=== PATIENT | male | born 1945 | race Caucasian/White ===

== ENCOUNTER 2018-05-15 11:40 | Emergency (ER) | payer MEDICARE ==
--- OUTSIDE RECORDS SUMMARY | 2018-05-15 12:02 | XMS REPORT | Continuity of Care Document ---
:1945 External Reference #:[id number] Author Name Tushar Dawkins M.D. Address [address] [place] [address] Care Team Providers Name Role Phone Sha Brice M.D. Primary Care Physician Unavailable Payers Type Date Identification Numbers Payment Provider Subscriber Policy Number: [id number] Medicare - [facility] Naun Saez PayID: [id number] [address] [place], [place] [id number] Advance Directives Description No Information Available Problems Date Description Provider Status Onset: Essential hypertension Active Onset: 05/14/2018 Presbyopia Tushar Dawkins M.D. Active Onset: 05/14/2018 Myopia Tushar Dawkins M.D. 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 Family History Date Family Member(s) Problem(s) Comments Father No Current Problems Mother No Current Problems Social History Type Date Description Comments Sex Unknown Marital Status Single Occupation Clergyman Work Status Full-Time Employment ETOH Use Occasionally consumes alcohol Tobacco Use Start: Unknown Patient has never smoked Smoking Status Reviewed: 05/14/18 Patient has never smoked Allergies, Adverse Reactions, Alerts Description No Known Drug Allergies Medications Medication Date Status Form Strength Qnty SIG Indications Ordering Provider Hydrochlorothiazide Active Tablets 12.5mg Abdoul Brice M.D. Multi Vitamin Daily 00/0 Active Tablets Unknown 000 Vitamin D 0 Active Tablets 1000Unit 4 every Unknown 000 day Immunizations Description No Information Available Vital Signs Description No Information Available Results Description No Information Available Procedures Date Code Description Status 09/30/2011 45689 New Patient Comprehensive Exam Completed Encounters Description No Information Available Plan of Treatment 05/14/2018 - Tushar Dawkins M.D.H25.813 Combined forms of age-related cataract, bilateralComments:Smoking can increase the risk of developing or worsening any eye related disease, as well as affect your overall health. If you are a smoker, we strongly recommend that you quit.If you are not a smoker, we strongly recommend that you do not start. You have been diagnosed with cataracts. If you are happy with your vision as it is now, then we will see you at your next scheduled appointment. If you feel like your vision is getting worse before your scheduled appointment, please call [facility] at [phone].Follow up:6 Month Follow Up DFE You can expect to have your eyes dilated at your next visit. If Dr. Dawkins orders any additional testing, it may require extra time. We recommend that you bring sunglasses, as dilation drops often make you light sensitive until they wear off. We always recommend you bring someone to drive you home if you are uncomfortable driving with your eyes dilated. If you have any questions before your next visit, feel free to call our office at .H40.053 Ocular hypertension, bilateralComments :You have Ocular Hypertension in both eyes. This means that your eye pressure is higher than average, but you have not been diagnosed with Glaucoma.H52.13 Myopia, bilateralComments:You have Myopia, or near sightedness. I have given you a prescription for glasses.H52.4 PresbyopiaComments:You have presbyopia. This is when the lens in your eye loses the ability to change focus, and happens as we age. A pair of reading glasses will help you see up close.
--- NOTE | 2018-05-15 12:06 | UC ---
Throat Pain/Nasal Bakari HPI - HPI Summary HPI Summary: 72 yo male presents with sore throat and dry cough for the last 2-3 days. He has felt warm at times, but has not taken his temperature to see if he has a fever. 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 He has not taken anything OTC for his symptoms. Denies sinus symptoms, SOB, chest pain, n/v. Does not smoke. - History of Current Complaint Stated Complaint: SORE THROAT Time Seen by Provider: 05/15/18 12:05 Hx Obtained From: Patient Onset/Duration: Gradual Onset Severity: Mild Pain Intensity: 2 Pain Scale Used: 0-10 Numeric Cough: Nonproductive - Allergies/Home Medications Allergies/Adverse Reactions: Allergies Allergy/AdvReac Type Severity Reaction Status Date / Time No Known Allergies Allergy Verified 05/15/18 12:03 Home Medications: Home Medications Hydrochlorothiazide TAB* [Hydrodiuril TAB*] 12.5 mg PO DAILY 05/15/18 [History Confirmed 05/15/18] Multivitamin [Multivitamins] 1 cap PO DAILY 05/15/18 [History Confirmed 05/15/18 ] PMH/Surg Hx/FS Hx/Imm Hx Cardiovascular History: Hypertension - Surgical History Surgical History: Yes Surgery Procedure, Year, and Place: Prostatectomy 2002. Hernia repair x 2 - Family History Known Family History: Positive: None - Social History Occupation: Employed Part-time Lives: With Family Alcohol Use: Weekly Substance Use Type: None Smoking Status (MU): Never Smoked Tobacco Review of Systems All Other Systems Reviewed And Are Negative: Yes Constitutional: Positive: Negative Skin: Positive: Negative Eyes: Positive: Negative ENT: Positive: Sore Throat Respiratory: Positive: Cough Cardiovascular: Positive: Negative Neurovascular: Positive: Negative Neurological: Positive: Negative Psychological: Positive: Negative Physical Exam - Summary Physical Exam Summary: GENERAL: NAD. WDWN. No pain distress. SKIN: No rashes, sores, lesions, or open wounds. HEENT: Head: AT/NC Eyes: Conjunctiva clear without inflammation or discharge. Ears: Hearing grossly normal. TMs intact, no bulging, erythema, or edema. Nose: Nasal mucosa pink and moist. NTTP maxillary and frontal sinus. Throat: Posterior oropharynx without exudates, erythema, or tonsillar enlargement. Uvula midline. NECK: Supple. Nontender. No lymphadenopathy. CHEST: Mild wheezing throughout with crackles at RML. No accessory muscle use. Breathing comfortably and in no distress. CV: RRR. Without m/r/g. Pulses intact. Cap refill <2seconds NEURO: Alert. PSYCH: Age appropriate behavior. Triage Information Reviewed: Yes Vital Signs: Vital Signs: Temp Pulse Resp BP Pulse Ox 100 F 81 18 145/77 96 05/15/18 12:04 05/15/18 12:04 05/15/18 12:04 05/15/18 12:04 05/15/18 12:04 Vital Signs Reviewed: Yes Throat Pain/Nasal Course/Dx - Course Course Of Treatment: CXR: IMPRESSION: FINDINGS CONSISTENT WITH COPD, NO EVIDENCE FOR ACUTE FINDING. Given his line of work and age, pt prefers to be on anbx at this time. Will rx for zpak and have him f/u if symptoms do not improve. - Differential Dx/Diagnosis Provider Diagnosis: Pharyngitis, Cough Discharge - Sign-Out/Discharge Documenting (check all that apply): Patient Departure All imaging exams completed and their final reports reviewed: Yes - Discharge Plan Condition: Stable Disposition: HOME Prescriptions: Azithromycin TAB* [Zithromax TAB (Z-SAGE) 250 mg #6 tabs] 2 tab PO .TODAY, THEN 1 DAILY #1 sage Patient Education Materials: Upper Respiratory Infection (DC) Referrals: Sha Brice MD [Primary Care Provider] - Additional Instructions: If you develop a fever, shortness of breath, chest pain, new or worsening symptoms - please call your PCP or go to the ED. Your blood pressure was mildly elevated at todays visit. Please see your primary provider within 4 weeks for recheck and re-evaluation. - Billing Disposition and Condition Condition: STABLE Disposition: Home - Attestation Statements Provider Attestation: I was available for consult. This patient was seen by the JIN. The patient was not presented to, seen by, or examined by me. -Dre
[2018-05-15 12:11] VITALS: BP 145/77
== END 2018-05-15 13:18 | disposition home or self-care (01) ==
LOC: UCEAST 11:40
DX: J02.9 Acute pharyngitis, unspecified (principal); R05 Cough; I10 Essential (primary) hypertension
CPT/HCPCS: 71046; 87651; 99212; G0463

== ENCOUNTER 2024-01-13 16:21 | Inpatient (IN) ==
[2024-01-13 16:56] LABS: ABS Lymphocytes 0.9 10^3/uL (1.0-4.8); ABS Monocytes 0.6 10^3/uL (0.0-1.1); ABS Neutrophils 10.1 10^3/uL (1.5-7.6); Eosinophil % 0.3 %; Hematocrit 42.5 % (38-53); Hemoglobin 14.3 g/dL (13.2-16.3); Lymphocyte % 7.8 %; Mean Corpuscular Hemoglobin 31.6 pg (27-33); Mean Corpuscular Hgb Conc 33.5 g/dL (31-36); Mean Corpuscular Volume 94.2 fL (80-97); Mean Platelet Volume 6.8 fL (7.5-11.2); Platelet Count 330 10^3/uL (150-450); Red Blood Count 4.52 10^6/uL (4.06-5.63); Red Cell Distribution Width 13.7 % (12-17); White Blood Count 11.7 10^3/uL (3.6-10.2)
[2024-01-13 17:09] LABS: INR 1.04 (0.85-1.14)
[2024-01-13 17:27] LABS: Urine Appearance Clear; Urine Bilirubin Negative (Negative); Urine Blood Negative (Negative); Urine Color Yellow; Urine Glucose Negative (Negative); Urine Ketones 4+ (Negative); Urine Nitrite Negative (Negative); Urine Protein Trace (Negative); Urine Specific Gravity 1.024 (1.002-1.030); Urine Urobilinogen 1+ (Negative); Urine pH 5.5 (5.0-8.0)
[2024-01-13 18:15] LABS: Albumin 4.5 g/dL (3.2-5.2); C Reactive Protein 10.98 mg/L (<8.01); Calcium 9.9 mg/dL (8.6-10.3); Creatinine, Serum 1.1 mg/dL (0.67-1.17); Globulin 2.2 g/dL (2-4); Magnesium 1.9 mg/dL (1.9-2.7); Potassium 5.2 mmol/L (3.5-5.0); Total Bilirubin 0.8 mg/dL (0.2-1.0); Total Protein 6.7 g/dL (6.4-8.9); eGFR CKD-EPI 69.1 (>60)
[2024-01-13] MEDS: Lactated Ringers 1000 ml BAG 1,000 ML IV ONE (19:44)
[2024-01-13] MEDS: Iohexol 300 (CONTRAST) 10 ML SDV IV ONE (20:47)
[2024-01-13] MEDS: Ondansetron 4 mg VIAL 2 MG/ML 2 ml VIAL IV ONE (22:23)
[2024-01-13] MEDS: Morphine 2 MG/ML SYRINGE IV ONE (23:50)
[2024-01-13] MEDS: Acetaminophen IV 1 GM/100ML 1,000 MG/100 ML BAG IV ONE (23:53)
[2024-01-14] MEDS: Lactated Ringers 1000 ml BAG 1,000 ML IV SCH (01:22)
[2024-01-14 06:36] LABS: ABS Lymphocytes 0.6 10^3/uL (1.0-4.8); ABS Monocytes 0.5 10^3/uL (0.0-1.1); ABS Neutrophils 7.6 10^3/uL (1.5-7.6); ABS Nucleated RBC 0.01 10^3/ul; Eosinophil % 0.1 %; Hematocrit 37.9 % (38-53); Hemoglobin 12.7 g/dL (13.2-16.3); Lymphocyte % 7.3 %; Mean Corpuscular Hemoglobin 31.1 pg (27-33); Mean Corpuscular Hgb Conc 33.6 g/dL (31-36); Mean Corpuscular Volume 92.7 fL (80-97); Mean Platelet Volume 7.3 fL (7.5-11.2); Nucleated Red Blood Cells % 0.1 %/100WBC (0.0-0.8); Platelet Count 308 10^3/uL (150-450); Red Blood Count 4.09 10^6/uL (4.06-5.63); Red Cell Distribution Width 13.5 % (12-17); White Blood Count 8.8 10^3/uL (3.6-10.2)
[2024-01-14 07:54] LABS: Calcium 8.6 mg/dL (8.6-10.3); Creatinine, Serum 0.99 mg/dL (0.67-1.17); Potassium 4.4 mmol/L (3.5-5.0); eGFR CKD-EPI 78.5 (>60)
[2024-01-14 07:55] LABS: Albumin 3.7 g/dL (3.2-5.2); Albumin/Globulin Ratio 1.9 (1-3); Total Bilirubin 0.8 mg/dL (0.2-1.0); Total Protein 5.7 g/dL (6.4-8.9)
[2024-01-14] MEDS: Enoxaparin 40 MG/0.4 ML SYR SUBCUT SCH (08:15)
[2024-01-14] MEDS: NS 0.9% 1000 ml BAG 1,000 ML IV SCH (15:03)
[2024-01-14] MEDS: Diatrizoate Meg/Sod(CONTRAST) 30 ML ORAL.SOLN PO ONE (19:43)
[2024-01-15] MEDS: Diatrizoate Meg/Sod(CONTRAST) 30 ML ORAL.SOLN PO ONE
[2024-01-15] MEDS: Acetaminophen IV 1 GM/100ML 1,000 MG/100 ML BAG IV PRN (03:41)
[2024-01-15] MEDS: Ondansetron 4 mg VIAL 2 MG/ML 2 ml VIAL IV PRN (03:41)
[2024-01-15 05:36] LABS: ABS Lymphocytes 0.4 10^3/uL (1.0-4.8); ABS Monocytes 0.5 10^3/uL (0.0-1.1); ABS Neutrophils 4.6 10^3/uL (1.5-7.6); Eosinophil % 0.2 %; Hematocrit 38.6 % (38-53); Mean Corpuscular Hemoglobin 31.4 pg (27-33); Mean Corpuscular Hgb Conc 33.6 g/dL (31-36); Mean Corpuscular Volume 93.4 fL (80-97); Platelet Count 305 10^3/uL (150-450); Red Blood Count 4.13 10^6/uL (4.06-5.63); Red Cell Distribution Width 13.4 % (12-17); White Blood Count 5.5 10^3/uL (3.6-10.2)
[2024-01-15 06:15] LABS: Calcium 8.5 mg/dL (8.6-10.3); Creatinine, Serum 1.2 mg/dL (0.67-1.17); Magnesium 1.9 mg/dL (1.9-2.7); Potassium 4.3 mmol/L (3.5-5.0); eGFR CKD-EPI 62.3 (>60)
[2024-01-15] MEDS ORDERED: Naloxone 0.4 mg VIAL 0.4 mg/ml 1 ml VIAL IV PRN ×2 (11:31→20:04)
[2024-01-15] MEDS ORDERED: Famotidine IV 10 MG/ML 2 ml VIAL (20 mg) IV ONE (11:31)
[2024-01-15] MEDS ORDERED: Ondansetron 4 mg VIAL 2 MG/ML 2 ml VIAL IV PRN ×2 (11:31→20:04)
[2024-01-15] MEDS ORDERED: fentaNYL 100 mcg/2 ml 50 MCG/ML VIAL IV PRN (11:31)
[2024-01-15] MEDS ORDERED: Lactated Ringers 1000 ml BAG 1,000 ML IV SCH ×2 (12:00→21:00)
[2024-01-15] MEDS: Buffered Lidocaine 1% SYRIN 1 ml INTRADERM ONE (12:21)
[2024-01-15] MEDS ORDERED: Bupivacaine 0.25% w/EPI 10 ML SDV ONE (14:07)
[2024-01-15] MEDS ORDERED: Ondansetron 4 mg VIAL 2 MG/ML 2 ml VIAL ONE (14:19)
[2024-01-15] MEDS ORDERED: Dexamethasone IV 4 MG/ML VIAL 1 ml VIAL ONE (14:19)
[2024-01-15] MEDS ORDERED: Lidocaine 2% PF 5 ML VIAL ONE (14:19)
[2024-01-15] MEDS ORDERED: Midazolam 2 mg/2 ml VIAL 1 mg/ml 2 ml VIAL (2 mg) ONE (14:19)
[2024-01-15] MEDS ORDERED: fentaNYL 250 mcg/5 ml 50 MCG/ML 5 ml VIAL (250 MCG) ONE ×2 (14:19→16:27)
[2024-01-15] MEDS ORDERED: Rocuronium 50 mg VIAL 10 mg/ml 5 ml VIAL (50 mg) ONE ×4 (14:19→18:26)
[2024-01-15] MEDS ORDERED: Propofol 10 MG/ML 20 ML BTL ONE (14:19)
[2024-01-15] MEDS ORDERED: metroNIDAZOLE IV 500 MG/100ML 500 MG/100 ML BAG ONE (15:51)
[2024-01-15] MEDS ORDERED: ceFAZolin 2 GM PREMIX 2 GM/50 ML BAG ONE (15:51)
[2024-01-15] MEDS ORDERED: Succinylcholine 200 mg VIAL 20 mg/ml 10 ml VIAL (200 mg) ONE (15:58)
[2024-01-15] MEDS ORDERED: HYDROmorphone 0.5 MG/0.5 ML SYRINGE ONE (16:57)
[2024-01-15] MEDS ORDERED: Acetaminophen IV 1 GM/100ML 1,000 MG/100 ML BAG IV ONE ×2 (17:08→20:04)
[2024-01-15] MEDS ORDERED: Phenylephrine IV 10 MG/ML 1 ml VIAL ONE (17:58)
[2024-01-15] MEDS ORDERED: Albumin Human 5% 12.5 GM/250 ML BTL IV ONE ×2 (18:02→18:26)
[2024-01-15] MEDS ORDERED: fentaNYL 100 mcg/2 ml 50 MCG/ML VIAL ONE (19:33)
[2024-01-15] MEDS: fentaNYL 100 mcg/2 ml 50 MCG/ML VIAL IV PRN (19:52)
[2024-01-15] MEDS ORDERED: Metoclopramide 5 MG/ML VIAL (10 mg) IV PRN (20:04)
[2024-01-15] MEDS ORDERED: Buffered Lidocaine 1% SYRIN 1 ml INTRADERM ONE (20:04)
[2024-01-15] MEDS ORDERED: Scopolamine 1 mg/72hr PATCH TRANSDERM ONE (20:04)
[2024-01-15] MEDS ORDERED: HYDROmorphone 0.5 MG/0.5 ML SYRINGE IV ONE (20:15)
[2024-01-15] MEDS ORDERED: HYDROmorphone 1 MG/1 ML SYRINGE ONE (20:23)
[2024-01-15] MEDS: HYDROmorphone 0.5 MG/0.5 ML SYRINGE IV SLOW PU PRN (20:30)
[2024-01-15] MEDS ORDERED: NS 0.45% 1000 ml BAG 1,000 ML IV SCH (21:00)
[2024-01-15] MEDS: Pantoprazole VIAL 40 MG VIAL IV SCH (22:48)
[2024-01-15] MEDS: NS 0.9% 1000 ml BAG 1,000 ML IV SCH (22:49)
[2024-01-15] MEDS: Morphine 2 MG/ML SYRINGE IV PRN (22:54)
[2024-01-16] MEDS: metroNIDAZOLE IV 500 MG/100ML 500 MG/100 ML BAG IVPB SCH (00:48)
[2024-01-16] MEDS: ceFAZolin 2 GM PREMIX 2 GM/50 ML BAG IV ONE (02:04)
[2024-01-16 07:23] LABS: Calcium 7.5 mg/dL (8.6-10.3); Creatinine, Serum 1.21 mg/dL (0.67-1.17); Magnesium 1.7 mg/dL (1.9-2.7); Phosphorus 3.4 mg/dL (2.5-5.0); Potassium 4.1 mmol/L (3.5-5.0); eGFR CKD-EPI 61.7 (>60)
[2024-01-16 07:24] LABS: Hematocrit 36.5 % (38-53); Hemoglobin 12.5 g/dL (13.2-16.3); Mean Corpuscular Hemoglobin 31.8 pg (27-33); Mean Corpuscular Hgb Conc 34.1 g/dL (31-36); Mean Corpuscular Volume 93.1 fL (80-97); Mean Platelet Volume 7.6 fL (7.5-11.2); Platelet Count 261 10^3/uL (150-450); Red Blood Count 3.92 10^6/uL (4.06-5.63); Red Cell Distribution Width 13.4 % (12-17); White Blood Count 5.5 10^3/uL (3.6-10.2)
[2024-01-16] MEDS: Magnesium Sulfate 2 gm BAG 2 GM/50 ML BAG IVPB ONE (08:10)
[2024-01-16 08:37] LABS: ABS Lymphocytes 0.2 10^3/uL (1.0-4.8); ABS Monocytes 0.3 10^3/uL (0.0-1.1); RBC Morphology Normal (Normal)
[2024-01-16] MEDS ORDERED: Acetaminophen IV 1 GM/100ML 1,000 MG/100 ML BAG IV SCH (12:00)
[2024-01-16] MEDS: Acetaminophen IV 1 GM/100ML 1,000 MG/100 ML BAG IV SCH (12:43)
[2024-01-16] MEDS: Enoxaparin 40 MG/0.4 ML SYR SUBCUT SCH (12:44)
[2024-01-17 06:14] LABS: ABS Lymphocytes 0.4 10^3/uL (1.0-4.8); ABS Monocytes 0.6 10^3/uL (0.0-1.1); ABS Nucleated RBC 0.04 10^3/ul; Hematocrit 35.7 % (38-53); Hemoglobin 12.1 g/dL (13.2-16.3); Lymphocyte % 4.2 %; Mean Corpuscular Hemoglobin 31.5 pg (27-33); Mean Corpuscular Hgb Conc 33.8 g/dL (31-36); Mean Corpuscular Volume 93.2 fL (80-97); Mean Platelet Volume 7.7 fL (7.5-11.2); Nucleated Red Blood Cells % 0.3 %/100WBC (0.0-0.8); Platelet Count 255 10^3/uL (150-450); Red Blood Count 3.83 10^6/uL (4.06-5.63); Red Cell Distribution Width 13.6 % (12-17); White Blood Count 10.1 10^3/uL (3.6-10.2)
[2024-01-17 07:06] LABS: Calcium 7.5 mg/dL (8.6-10.3); Creatinine, Serum 0.89 mg/dL (0.67-1.17); Magnesium 2.6 mg/dL (1.9-2.7); Potassium 3.9 mmol/L (3.5-5.0); eGFR CKD-EPI 88.3 (>60)
[2024-01-17] MEDS: D5W 1/2 NS KCl 20 meq 1000 ml 1,000 ML IV SCH (09:34)
[2024-01-18 05:57] LABS: ABS Lymphocytes 0.6 10^3/uL (1.0-4.8); ABS Monocytes 0.4 10^3/uL (0.0-1.1); ABS Neutrophils 7.6 10^3/uL (1.5-7.6); ABS Nucleated RBC 0.01 10^3/ul; Eosinophil % 0.2 %; Hematocrit 33.2 % (38-53); Hemoglobin 11.1 g/dL (13.2-16.3); Lymphocyte % 7.5 %; Mean Corpuscular Hemoglobin 31.1 pg (27-33); Mean Corpuscular Hgb Conc 33.4 g/dL (31-36); Mean Corpuscular Volume 93.2 fL (80-97); Mean Platelet Volume 7.6 fL (7.5-11.2); Nucleated Red Blood Cells % 0.1 %/100WBC (0.0-0.8); Platelet Count 262 10^3/uL (150-450); Red Blood Count 3.56 10^6/uL (4.06-5.63); Red Cell Distribution Width 13.8 % (12-17); White Blood Count 8.6 10^3/uL (3.6-10.2)
[2024-01-18 06:25] LABS: Calcium 7.7 mg/dL (8.6-10.3); Creatinine, Serum 0.71 mg/dL (0.67-1.17); Potassium 3.7 mmol/L (3.5-5.0); eGFR CKD-EPI 94.5 (>60)
[2024-01-18] MEDS: D5W 1/2 NS KCl 20 meq 1000 ml 1,000 ML IV SCH (08:30)
[2024-01-18] MEDS: Acetaminophen IV 1 GM/100ML 1,000 MG/100 ML BAG IV PRN (21:15)
[2024-01-19 06:16] LABS: ABS Lymphocytes 0.6 10^3/uL (1.0-4.8); ABS Monocytes 0.4 10^3/uL (0.0-1.1); ABS Neutrophils 7.2 10^3/uL (1.5-7.6); Eosinophil % 0.4 %; Hematocrit 37.4 % (38-53); Hemoglobin 12.7 g/dL (13.2-16.3); Mean Corpuscular Hemoglobin 31.7 pg (27-33); Mean Corpuscular Volume 93.4 fL (80-97); Mean Platelet Volume 7.6 fL (7.5-11.2); Platelet Count 324 10^3/uL (150-450); Red Blood Count 4.01 10^6/uL (4.06-5.63); Red Cell Distribution Width 13.9 % (12-17); White Blood Count 8.2 10^3/uL (3.6-10.2)
[2024-01-19] MEDS: Acetaminophen IV 1 GM/100ML 1,000 MG/100 ML BAG IV PRN (10:49)
[2024-01-20 06:18] LABS: ABS Eosinophils 0.1 10^3/uL (0.0-0.5); ABS Lymphocytes 0.7 10^3/uL (1.0-4.8); ABS Monocytes 0.5 10^3/uL (0.0-1.1); ABS Neutrophils 2.8 10^3/uL (1.5-7.6); ABS Nucleated RBC 0.01 10^3/ul; Hematocrit 39.2 % (38-53); Hemoglobin 13.1 g/dL (13.2-16.3); Lymphocyte % 17.4 %; Mean Corpuscular Hemoglobin 31.8 pg (27-33); Mean Corpuscular Hgb Conc 33.4 g/dL (31-36); Mean Corpuscular Volume 95.3 fL (80-97); Mean Platelet Volume 7.3 fL (7.5-11.2); Nucleated Red Blood Cells % 0.1 %/100WBC (0.0-0.8); Platelet Count 326 10^3/uL (150-450); Red Blood Count 4.11 10^6/uL (4.06-5.63); White Blood Count 4.1 10^3/uL (3.6-10.2)
[2024-01-20 06:47] LABS: Creatinine, Serum 0.71 mg/dL (0.67-1.17); Magnesium 2.1 mg/dL (1.9-2.7); Potassium 4.1 mmol/L (3.5-5.0); eGFR CKD-EPI 94.5 (>60)
[2024-01-22 05:33] LABS: ABS Eosinophils 0.1 10^3/uL (0.0-0.5); ABS Lymphocytes 0.9 10^3/uL (1.0-4.8); ABS Monocytes 0.7 10^3/uL (0.0-1.1); ABS Neutrophils 4.6 10^3/uL (1.5-7.6); Eosinophil % 1.8 %; Hemoglobin 11.4 g/dL (13.2-16.3); Lymphocyte % 14.7 %; Mean Corpuscular Hemoglobin 31.9 pg (27-33); Mean Corpuscular Hgb Conc 34.6 g/dL (31-36); Mean Platelet Volume 7.7 fL (7.5-11.2); Platelet Count 462 10^3/uL (150-450); Red Blood Count 3.59 10^6/uL (4.06-5.63); Red Cell Distribution Width 13.7 % (12-17); White Blood Count 6.4 10^3/uL (3.6-10.2)
[2024-01-22 05:52] LABS: Calcium 7.6 mg/dL (8.6-10.3); Creatinine, Serum 0.65 mg/dL (0.67-1.17); Magnesium 1.8 mg/dL (1.9-2.7); Potassium 4.2 mmol/L (3.5-5.0)
[2024-01-22] MEDS: Magnesium Sulfate IV 1GM/100ML 1 GM/100 ML BAG IV ONE (07:59)
[2024-01-22 13:55] VITALS: BP 123/69
== END 2024-01-22 15:15 | disposition home or self-care (01) | DRG 336 ==
LOC: ED 16:21 → EDHOLD 23:57 → SUATTDRO 23:57 → SSU 01-15 11:10
PROVIDERS: ADMIT Internal Medicine; ATTEND Hospitalist